=== PATIENT | female | born 1985 | race Caucasian/White ===

== ENCOUNTER 2017-03-19 09:54 | Emergency (ER) | payer OTHER ==
[~2017-03-19] VITALS: Ht 167.6 cm; Wt 115.2 kg
[2017-03-19 09:56] VITALS: BP 130/80
[2017-03-19 10:57] LABS: BASOPHILS # (AUTO) 0.07 x10^3/uL (0-0.1); BASOPHILS % (AUTO) 1 % (0-1); EOSINOPHILS # (AUTO) 0.12 x10^3/uL (0-0.4); EOSINOPHILS % (AUTO) 1 % (1-7); LYMPHOCYTES # (AUTO) 2.21 x10^3/uL (1-3.4); LYMPHOCYTES % (AUTO) 25 % (22-44); MD NO; MEAN CORPUSCULAR HGB CONC 33.5 g/dL (32.4-35.8); MEAN CORPUSCULAR VOLUME 83.6 fL (80-100); MEAN PLATELET VOLUME 7.9 fL (7.4-10.4); MONOCYTES # (AUTO) 0.58 x10^3/uL (0.2-0.8); MONOCYTES % (AUTO) 7 % (2-9); NEUTROPHILS # (AUTO) 5.79 x10^3/uL (1.8-6.8); NEUTROPHILS % (AUTO) 66 % (42-75); PLATELET COUNT 274 x10^3/uL (130-400); RED BLOOD COUNT 5.02 x10^6/uL (3.82-5.3); RED CELL DISTRIBUTION WIDTH 14.5 % (9.6-15.2)
[2017-03-19 12:12] LABS: MICROSCOPIC AUTO
[2017-03-19 12:13] LABS: CULTURE INDICATED? YES
== END 2017-03-19 12:39 | disposition home or self-care (01) ==
LOC: ED 12:33
DX: O20.0 Threatened abortion (principal); Z3A.01 Less than 8 weeks gestation of pregnancy
CPT/HCPCS: 36415; 76801; 81001; 84702; 85025; 86901; 87086; 99285

== ENCOUNTER 2017-09-18 18:48 | Outpatient (CLI) | payer OTHER ==
[~2017-09-18] VITALS: Ht 167.6 cm; Wt 28.6 kg
[2017-09-18 19:30] LABS: MICROSCOPIC INDICATED
[2017-09-18] MEDS ORDERED: NITR100C56 PO (20:20)
[2017-09-18] MEDS ORDERED: NITROFURANTOIN (MACROBID) 100 MG CAPSULE PO ONE (20:30)
[2017-09-18] MEDS ORDERED: NITROFURANTOIN (MACROBID) 100 MG CAPSULE ONE (20:31)
[2017-09-19] MEDS ORDERED: PREN-3 PO (14:40)
== END 2017-09-18 20:35 | disposition home or self-care (01) ==
LOC: LDOP 18:48
PROVIDERS: ATTEND Obstetrics & Gynecology Female Pelvic Medicine and Reconstructive Surgery
DX: O26.893 Other specified pregnancy related conditions, third trimester (principal); M54.5 Low back pain; R10.9 Unspecified abdominal pain; Z3A.32 32 weeks gestation of pregnancy
CPT/HCPCS: 59025; 76770; 81001; 87086; 99211; G0463

== ENCOUNTER 2017-09-19 13:02 | Emergency (ER) | payer OTHER ==
[~2017-09-19] VITALS: Ht 167.6 cm; Wt 117.6 kg
[~2017-09-19 13:02] MED LIST: NITR100C56 PO
[2017-09-19 13:04] VITALS: BP 123/76
[2017-09-19] MEDS ORDERED: PREN-3 PO (14:40)
[2017-09-19] MEDS ORDERED: ACETAMINOPHEN 500 MG TABLET PO ONE (15:30)
[2017-09-19] MEDS ORDERED: ACETAMINOPHEN 500 MG TABLET ONE (15:30)
[2017-09-19 15:56] LABS: BASOPHILS # (AUTO) 0.03 x10^3/uL (0-0.1); BASOPHILS % (AUTO) 0 % (0-1); EOSINOPHILS # (AUTO) 0.11 x10^3/uL (0-0.4); EOSINOPHILS % (AUTO) 1 % (1-7); LYMPHOCYTES # (AUTO) 1.85 x10^3/uL (1-3.4); LYMPHOCYTES % (AUTO) 17 % (22-44); MD NO; MEAN CORPUSCULAR HEMOGLOBIN 26.7 pg (27.0-34.8); MEAN CORPUSCULAR HGB CONC 32.8 g/dL (32.4-35.8); MEAN CORPUSCULAR VOLUME 81.4 fL (80-100); MEAN PLATELET VOLUME 8.3 fL (7.4-10.4); MONOCYTES # (AUTO) 0.61 x10^3/uL (0.2-0.8); MONOCYTES % (AUTO) 6 % (2-9); NEUTROPHILS # (AUTO) 8.24 x10^3/uL (1.8-6.8); NEUTROPHILS % (AUTO) 76 % (42-75); PLATELET COUNT 274 x10^3/uL (130-400); RED CELL DISTRIBUTION WIDTH 14.4 % (9.6-15.2)
[2017-09-19 16:06] LABS: ALBUMIN 2.4 g/dL (3.4-5.0); ANION GAP 9 mmol/L (5-15); CALCIUM 8.8 mg/dL (8.5-10.1); CHLORIDE 107 mmol/L (98-107)
[2017-09-19 16:09] LABS: ALANINE AMINOTRANSFERASE 16 U/L (12-78); ALKALINE PHOSPHATASE 130 U/L (45-117); BILIRUBIN,TOTAL 0.4 mg/dL (0.2-1.0); TOTAL PROTEIN 7.6 g/dL (6.4-8.2)
== END 2017-09-19 17:51 | disposition home or self-care (01) ==
LOC: ED 14:45
DX: O99.613 Diseases of the digestive system complicating pregnancy, third trimester (principal); Z3A.31 31 weeks gestation of pregnancy
CPT/HCPCS: 36415; 76700; 80053; 83690; 85025; 99285

== ENCOUNTER 2017-10-26 09:43 | Outpatient (CLI) | payer OTHER ==
[~2017-10-26] VITALS: Ht 167.6 cm; Wt 121.8 kg
[~2017-10-26 09:43] MED LIST changes: +PREN-3 PO
[2017-10-26 09:52] VITALS: BP 131/74
[2017-10-26 10:36] LABS: CREATININE,URINE RANDOM 75.2 mg/dL
[2017-10-26 10:43] LABS: MICROSCOPIC INDICATED
[2017-10-26 10:51] LABS: BASOPHILS # (AUTO) 0.09 x10^3/uL (0-0.1); BASOPHILS % (AUTO) 1 % (0-1); EOSINOPHILS # (AUTO) 0.04 x10^3/uL (0-0.4); EOSINOPHILS % (AUTO) 0 % (1-7); LYMPHOCYTES # (AUTO) 1.91 x10^3/uL (1-3.4); LYMPHOCYTES % (AUTO) 17 % (22-44); MD NO; MEAN CORPUSCULAR HEMOGLOBIN 26.3 pg (27.0-34.8); MEAN CORPUSCULAR HGB CONC 33.5 g/dL (32.4-35.8); MEAN CORPUSCULAR VOLUME 78.6 fL (80-100); MEAN PLATELET VOLUME 8.5 fL (7.4-10.4); MONOCYTES # (AUTO) 0.63 x10^3/uL (0.2-0.8); MONOCYTES % (AUTO) 6 % (2-9); NEUTROPHILS # (AUTO) 8.29 x10^3/uL (1.8-6.8); NEUTROPHILS % (AUTO) 76 % (42-75); PLATELET COUNT 274 x10^3/uL (130-400); RED BLOOD COUNT 4.51 x10^6/uL (3.82-5.3); RED CELL DISTRIBUTION WIDTH 15.2 % (9.6-15.2)
[2017-10-26 10:59] LABS: ALANINE AMINOTRANSFERASE 18 U/L (12-78); ALBUMIN 2.3 g/dL (3.4-5.0); ANION GAP 9 mmol/L (5-15); CALCIUM 8.5 mg/dL (8.5-10.1); CHLORIDE 107 mmol/L (98-107); CREATININE 0.45 mg/dL (0.55-1.02)
[2017-10-26 11:02] LABS: ALKALINE PHOSPHATASE 160 U/L (45-117); BILIRUBIN,TOTAL 0.2 mg/dL (0.2-1.0); TOTAL PROTEIN 7.5 g/dL (6.4-8.2)
== END 2017-10-26 11:23 | disposition home or self-care (01) ==
LOC: LDOP 09:43
PROVIDERS: ATTEND Obstetrics & Gynecology Female Pelvic Medicine and Reconstructive Surgery
DX: O13.3 Gestational [pregnancy-induced] hypertension without significant proteinuria, third trimester (principal); Z3A.37 37 weeks gestation of pregnancy
CPT/HCPCS: 36415; 59025; 80053; 81001; 82570; 84156; 84550; 85025; 99211; G0463

== ENCOUNTER 2017-11-07 09:53 | Inpatient (IN) | payer OTHER ==
[~2017-11-07] VITALS: Ht 167.6 cm; Wt 124.0 kg
[2017-11-07] MEDS ORDERED: OXYTOCIN 30U/ 0.9% NaCL 500ML 500 ML IV SCH (09:54)
[2017-11-07] MEDS ORDERED: LACTATED RINGERS 1,000 ML IV SCH ×2 (09:54→09:55)
[2017-11-07] MEDS ORDERED: METOCLOPRAMIDE 5 MG/ML, 2ML ONE (10:00)
[2017-11-07] MEDS ORDERED: NEWBORN KIT ONE (10:00)
[2017-11-07] MEDS ORDERED: SODIUM CITRATE/CITRIC ACID 30 ML UDC ONE (10:00)
[2017-11-07] MEDS ORDERED: OXYTOCIN 30U/ 0.9% NaCL 500ML 0 ML ONE (10:00)
[2017-11-07] MEDS ORDERED: LACTATED RINGERS 1,000 ML IVBOLUS ONE (10:00)
[2017-11-07] MEDS ORDERED: OXYcodone 5 MG/5 ML ORAL.SOL UDC PO PRN (10:30)
[2017-11-07] MEDS ORDERED: PROMETHAZINE 25 MG/ML, 1ML IV PRN (10:30)
[2017-11-07] MEDS ORDERED: FENTANYL PF 100 MCG/2ML IV PRN (10:30)
[2017-11-07] MEDS ORDERED: ALBUTEROL SULFATE 2.5 MG/3 ML NPPB PRN (10:30)
[2017-11-07] MEDS ORDERED: HYDROcodone/APAP 7.5-325MG/15ML UDC PO PRN (10:30)
[2017-11-07] MEDS ORDERED: HYDROmorphone 1 MG/ML, 1ML IV PRN (10:30)
[2017-11-07] MEDS ORDERED: LABETALOL 5MG/ML, 20ML IV PRN (10:30)
[2017-11-07] MEDS ORDERED: hydrALAzine 20 MG/ML, 1ML IV PRN (10:30)
[2017-11-07] MEDS ORDERED: EPHEDRINE 50 MG/ML, 1ML IVPush PRN (10:30)
[2017-11-07] MEDS ORDERED: MEPERIDINE/PF 25MG/0.5ML IVPush PRN (10:30)
[2017-11-07] MEDS ORDERED: MIDAZOLAM 1 MG/ML, 2ML IV PRN (10:30)
[2017-11-07] MEDS ORDERED: ONDANSETRON 2MG/ML, 2ML IVPush PRN (10:30)
[2017-11-07 10:50] LABS: BASOPHILS # (AUTO) 0.03 x10^3/uL (0-0.1); BASOPHILS % (AUTO) 0 % (0-1); EOSINOPHILS # (AUTO) 0.03 x10^3/uL (0-0.4); EOSINOPHILS % (AUTO) 0 % (1-7); LYMPHOCYTES # (AUTO) 1.93 x10^3/uL (1-3.4); LYMPHOCYTES % (AUTO) 20 % (22-44); MD NO; MEAN CORPUSCULAR HEMOGLOBIN 25.6 pg (27.0-34.8); MEAN CORPUSCULAR HGB CONC 32.7 g/dL (32.4-35.8); MEAN CORPUSCULAR VOLUME 78.3 fL (80-100); MEAN PLATELET VOLUME 8.7 fL (7.4-10.4); MONOCYTES # (AUTO) 0.59 x10^3/uL (0.2-0.8); MONOCYTES % (AUTO) 6 % (2-9); NEUTROPHILS # (AUTO) 7.14 x10^3/uL (1.8-6.8); NEUTROPHILS % (AUTO) 73 % (42-75); PLATELET COUNT 249 x10^3/uL (130-400); RED BLOOD COUNT 4.54 x10^6/uL (3.82-5.3); RED CELL DISTRIBUTION WIDTH 15.6 % (9.6-15.2)
[2017-11-07 11:03] LABS: ALBUMIN 2.3 g/dL (3.4-5.0); ANION GAP 9 mmol/L (5-15); CALCIUM 8.9 mg/dL (8.5-10.1); CHLORIDE 108 mmol/L (98-107)
[2017-11-07 11:06] LABS: ALANINE AMINOTRANSFERASE 14 U/L (12-78); ALKALINE PHOSPHATASE 151 U/L (45-117); BILIRUBIN, DIRECT < 0.1 mg/dL (0.1-0.2); BILIRUBIN,TOTAL 0.2 mg/dL (0.2-1.0); CREATININE 0.57 mg/dL (0.55-1.02)
[2017-11-07] MEDS ORDERED: METOCLOPRAMIDE 5 MG/ML, 2ML IVPush ONE (11:30)
[2017-11-07] MEDS ORDERED: OXYTOCIN 10 UNITS/ML, 1ML ONE (11:43)
[2017-11-07] MEDS ORDERED: EPHEDRINE 50 MG/ML, 1ML ONE (11:43)
[2017-11-07] MEDS ORDERED: ONDANSETRON 2MG/ML, 2ML ONE (11:43)
[2017-11-07] MEDS ORDERED: CEFAZOLIN 1,000 MG ONE ×2 (11:43→12:24)
[2017-11-07] MEDS ORDERED: DEXAMETHASONE 4 MG/ML, 1ML ONE (11:43)
[2017-11-07] MEDS ORDERED: KETOROLAC 30 MG/1 ML ONE (11:43)
[2017-11-07] MEDS ORDERED: PHENYLEPHRINE 10 MG/ML ONE (11:43)
[2017-11-07] MEDS: OXYTOCIN 30U/ 0.9% NaCL 500ML 500 ML IV SCH ×2 (11:44→21:44)
[2017-11-07] MEDS: LACTATED RINGERS 1,000 ML IV SCH ×4 (11:44→21:44)
[2017-11-07] MEDS ORDERED: FENTANYL PF 100 MCG/2ML ONE (11:44)
[2017-11-07] MEDS ORDERED: KETOROLAC 30 MG/1 ML IV PRN (12:00)
[2017-11-07] MEDS ORDERED: MEPERIDINE/PF 25MG/0.5ML IM PRN (12:00)
[2017-11-07] MEDS ORDERED: BISACODYL 10 MG SUPP PR PRN (12:00)
[2017-11-07] MEDS ORDERED: METOCLOPRAMIDE 5 MG/ML, 2ML IV PRN (12:00)
[2017-11-07] MEDS ORDERED: MISOPROSTOL 200 MCG TABLET PR PRN (12:00)
[2017-11-07] MEDS ORDERED: ONDANSETRON 2MG/ML, 2ML IV PRN (12:00)
[2017-11-07] MEDS: KETOROLAC 30 MG/1 ML IV SCH ×3 (12:30→23:57)
[2017-11-07] MEDS ORDERED: OXYTOCIN 30U/ 0.9% NaCL 500ML 500 ML ONE (12:57)
[2017-11-07] MEDS ORDERED: SODIUM CITRATE/CITRIC ACID 30 ML UDC PO SCH (13:00)
[2017-11-07] MEDS ORDERED: MEPERIDINE/PF 50 MG/ML ONE (14:40)
[2017-11-07] MEDS: MEPERIDINE/PF 50 MG/ML IM PRN ×3 (14:45→23:58)
[2017-11-07 15:10] VITALS: BP 125/70
[2017-11-07] MEDS ORDERED: DIPH,PERTUSS(ACELL),TET VAC/PF NC IM-VACC ONE (16:30)
[2017-11-07] MEDS: HYDROcodone/APAP 5/325 TABLET PO PRN (16:44)
[2017-11-07 19:20] VITALS: BP 143/80
[2017-11-07 20:42] LABS: BASOPHILS # (AUTO) 0.04 x10^3/uL (0-0.1); BASOPHILS % (AUTO) 0 % (0-1); EOSINOPHILS % (AUTO) 0 % (1-7); LYMPHOCYTES # (AUTO) 1.39 x10^3/uL (1-3.4); LYMPHOCYTES % (AUTO) 10 % (22-44); MD NO; MEAN CORPUSCULAR HEMOGLOBIN 25.7 pg (27.0-34.8); MEAN CORPUSCULAR HGB CONC 32.3 g/dL (32.4-35.8); MEAN CORPUSCULAR VOLUME 79.5 fL (80-100); MEAN PLATELET VOLUME 8.4 fL (7.4-10.4); MONOCYTES # (AUTO) 0.54 x10^3/uL (0.2-0.8); MONOCYTES % (AUTO) 4 % (2-9); NEUTROPHILS # (AUTO) 12.22 x10^3/uL (1.8-6.8); NEUTROPHILS % (AUTO) 86 % (42-75); PLATELET COUNT 245 x10^3/uL (130-400); RED BLOOD COUNT 4.49 x10^6/uL (3.82-5.3); RED CELL DISTRIBUTION WIDTH 15.8 % (9.6-15.2)
[2017-11-07 23:55] VITALS: BP 129/78
[2017-11-08] MEDS: LACTATED RINGERS 1,000 ML IV SCH ×4 (03:44→17:44)
[2017-11-08 04:45] VITALS: BP 119/76
[2017-11-08] MEDS: KETOROLAC 30 MG/1 ML IV SCH ×3 (05:45→18:00)
[2017-11-08] MEDS: HYDROcodone/APAP 5/325 TABLET PO PRN ×6 (05:46→23:29)
[2017-11-08] MEDS: OXYTOCIN 30U/ 0.9% NaCL 500ML 500 ML IV SCH ×2 (07:44→17:44)
[2017-11-08 08:36] VITALS: BP 111/66
[2017-11-08] MEDS: DOCUSATE 100 MG CAPSULE PO PRN ×2 (09:36→19:21)
[2017-11-08] MEDS: PRENATAL VIT/IRON/FA 1 EACH TABLET PO SCH (09:36)
[2017-11-08] MEDS ORDERED: IBUPROFEN 600 MG TABLET ONE ×2 (14:45→22:46)
[2017-11-08] MEDS: IBUPROFEN 600 MG TABLET PO PRN ×2 (14:46→22:47)
[2017-11-08 19:25] VITALS: BP 130/73
[2017-11-09] MEDS ORDERED: IBUPROFEN 600 MG TABLET ONE (05:41)
[2017-11-09] MEDS: IBUPROFEN 600 MG TABLET PO PRN (05:42)
[2017-11-09] MEDS: HYDROcodone/APAP 5/325 TABLET PO PRN ×2 (05:43→10:54)
[2017-11-09 06:50] VITALS: BP 133/83
[2017-11-09] MEDS: DOCUSATE 100 MG CAPSULE PO PRN (08:50)
[2017-11-09] MEDS: PRENATAL VIT/IRON/FA 1 EACH TABLET PO SCH (08:50)
[2017-11-09] MEDS ORDERED: HYDR1TAB12 PO (13:16)
[2017-11-09] MEDS ORDERED: IBUP-1222 PO (13:17)
== END 2017-11-09 15:30 | disposition home or self-care (01) | DRG 765 ==
LOC: LDIP 09:53 → 2NW 15:08
PROVIDERS: ADMIT Obstetrics & Gynecology Female Pelvic Medicine and Reconstructive Surgery; ATTEND Obstetrics & Gynecology Female Pelvic Medicine and Reconstructive Surgery
PROC: 10D00Z1 Extraction of Products of Conception, Low, Open Approach (ICD-10-PCS; principal; 2017-11-07)
DX: O34.211 Maternal care for low transverse scar from previous cesarean delivery (principal); Z68.41 Body mass index [BMI] 40.0-44.9, adult; Z37.0 Single live birth; O69.81X0 Labor and delivery complicated by cord around neck, without compression, not applicable or unspecified; O99.214 Obesity complicating childbirth; E66.9 Obesity, unspecified; Z3A.39 39 weeks gestation of pregnancy; Z23 Encounter for immunization
CPT/HCPCS: 36415; 80053; 82248; 84550; 85025; 86850; 86900; 90715; J0690; J1100; J1885; J2175; J2405; J3010; J2370; J2590; J2765; J7120

== ENCOUNTER 2019-03-18 09:12 | Emergency (ER) | payer OTHER ==
[~2019-03-18] VITALS: Ht 170.2 cm; Wt 93.0 kg
[~2019-03-18 09:12] MED LIST changes: +HYDR1TAB13 PO; +IBUP-1222 PO
[2019-03-18 09:22] VITALS: BP 119/78
--- NOTE | 2019-03-18 09:30 | NUR ---
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
--- NOTE | 2019-03-18 09:45 | NUR ---
DR CARTER AT BEDSIDE, ASSESSMENT REV. POC DISCUSSED AND ORDERS REC'D. PT AMB TO BATHROOM UPRIGHT STEADY GAIT, GAURDING OF RLQ ABD. URINE SAMPLE COLLECTED AND PT RTD TO ROOM W/O INCIDENT. BP AND PULSE OX MONITORING IN PLACE. CALL LIGHT W/I REACH. URINE SENT TO LAB.
[2019-03-18 09:58] LABS: BASOPHILS # (AUTO) 0.05 x10^3/uL (0-0.1); BASOPHILS % (AUTO) 1 % (0-1); EOSINOPHILS # (AUTO) 0.04 x10^3/uL (0-0.4); EOSINOPHILS % (AUTO) 0 % (1-7); LYMPHOCYTES # (AUTO) 1.71 x10^3/uL (1-3.4); LYMPHOCYTES % (AUTO) 17 % (22-44); MD NO; MEAN CORPUSCULAR HEMOGLOBIN 28.9 pg (27.0-34.8); MEAN CORPUSCULAR HGB CONC 32.9 g/dL (32.4-35.8); MEAN CORPUSCULAR VOLUME 87.8 fL (80-100); MEAN PLATELET VOLUME 8.2 fL (7.4-10.4); MONOCYTES # (AUTO) 0.57 x10^3/uL (0.2-0.8); MONOCYTES % (AUTO) 6 % (2-9); NEUTROPHILS # (AUTO) 7.57 x10^3/uL (1.8-6.8); NEUTROPHILS % (AUTO) 76 % (42-75); PLATELET COUNT 240 x10^3/uL (130-400); RED CELL DISTRIBUTION WIDTH 13.4 % (9.6-15.2)
[2019-03-18 10:04] LABS: ALANINE AMINOTRANSFERASE 22 U/L (12-78); ALBUMIN 3.7 g/dL (3.4-5.0); ANION GAP 6 mmol/L (5-15); CALCIUM 8.6 mg/dL (8.5-10.1); CHLORIDE 105 mmol/L (98-107); CREATININE 0.71 mg/dL (0.55-1.02)
[2019-03-18 10:08] LABS: ALKALINE PHOSPHATASE 65 U/L (45-117); BILIRUBIN,TOTAL 0.5 mg/dL (0.2-1.0); TOTAL PROTEIN 7.8 g/dL (6.4-8.2)
[2019-03-18 10:10] LABS: MICROSCOPIC INDICATED
[2019-03-18 10:11] LABS: CULTURE INDICATED? YES
--- NOTE | 2019-03-18 10:26 | NUR ---
TESTS RESULTED. CHART UP FOR RECHECK
[2019-03-18] MEDS ORDERED: CEFTRIAXONE 1,000 MG ONE (11:41)
[2019-03-18] MEDS ORDERED: KETOROLAC 60 MG/2 ML ONE (11:41)
[2019-03-18] MEDS ORDERED: LIDOCAINE-MPF 1%, 2ML ONE ×2 (11:42→11:43)
[2019-03-18] MEDS ORDERED: CEFTRIAXONE 1,000 MG IM ONE (12:00)
[2019-03-18] MEDS ORDERED: KETOROLAC 60 MG/2 ML IM ONE (12:00)
--- NOTE | 2019-03-18 12:08 | NUR ---
Patient given discharge instructions and they have confirmed that they understand the instructions. Patient ambulatory with steady gait.
== END 2019-03-18 12:09 | disposition home or self-care (01) ==
LOC: ED 10:55
DX: N30.01 Acute cystitis with hematuria (principal); R10.32 Left lower quadrant pain
CPT/HCPCS: 36415; 74176; 80053; 81001; 84703; 85025; 87077; 87086; 87186; 96372; 99284; J0696; J1885